=== PATIENT | female | born 1980 | race Caucasian/White ===

== ENCOUNTER 2019-12-10 14:26 | Emergency (ER) | payer MEDICARE, OTHER ==
[~2019-12-10] VITALS: Ht 162.6 cm; Wt 56.8 kg
[~2019-12-10 14:26] MED LIST: CITA10TA99 PO; GABA-1181 PO; LEVE500T53 PO; OLAN7.5T2 PO; SIMV-261 PO; ZONI100C30 PO
[2019-12-10] MEDS ORDERED: BACITRACIN 0.9 GM PACKET OINTMENT TP ONE (16:45)
[2019-12-10 17:35] LABS: BASOPHILS % (AUTO) 0.4 % (0.0-2.0); EOSINOPHILS % (AUTO) 0.4 % (1.0-6.0); HEMATOCRIT 39.7 % (36-46); HEMOGLOBIN 13.3 g/dL (12.0-16.0); LYMPHOCYTES # (AUTO) 2.6 K/uL (1.0-4.8); LYMPHOCYTES % (AUTO) 25.3 % (22.0-44.0); MEAN CORPUSCULAR HEMOGLOBIN 31.8 pg (26.0-34.0); MEAN CORPUSCULAR HGB CONC 33.4 G/dL (31.0-37.0); MEAN CORPUSCULAR VOLUME 95 fL (80-100); MONOCYTES # (AUTO) 0.5 K/uL (0.1-1.0); MONOCYTES % (AUTO) 4.6 % (2.0-9.0); NEUTROPHILS # (AUTO) 7.1 K/uL (1.8-7.7); NEUTROPHILS % (AUTO) 69.3 % (40.0-70.0); PLATELET COUNT (AUTO) 202 K/uL (150-450); RED BLOOD CELL COUNT(AUTO) 4.17 MIL/uL (4.00-5.20); RED CELL DISTRIBUTION WIDTH 13.5 % (11.5-14.5)
[2019-12-10 18:09] LABS: ALANINE AMINOTRANSFERASE 22 U/L (12-78); ALBUMIN 3.9 g/dL (3.4-5.0); ALKALINE PHOSPHATASE 100 U/L (46-116); ANION GAP 14 mmol/L (8-16); ASPARTATE AMINOTRANSFERASE 34 U/L (15-37); BILIRUBIN,TOTAL 0.3 mg/dL (0.1-1.0); CALCIUM, TOTAL 9.2 mg/dL (8.8-10.5); CARBON DIOXIDE 20 mmol/L (22-29); CHLORIDE 105 mmol/L (98-107); CREATININE 0.87 mg/dL (0.60-1.30); GLOMERULAR FILTR. RATE CALC > 60 mL/min (>60); GLUCOSE,RANDOM 89 mg/dL (70-110); SODIUM SERUM 139 mmol/L (136-145); TOTAL PROTEIN, SERUM 6.9 g/dL (6.4-8.2); UREA NITROGEN, BLOOD 11 mg/dL (7-18)
[2019-12-10 18:25] LABS: AMPHET/METH SCREEN,URINE NEGATIVE (NEGATIVE); BARBITURATE SCREEN, URINE NEGATIVE (NEGATIVE); BENZODIAZEPINES SCREEN,URINE NEGATIVE (NEGATIVE); CANNABINOID SCREEN,URINE NEGATIVE (NEGATIVE); COCAINE SCREEN,URINE NEGATIVE (NEGATIVE); METHADONE SCREEN, URINE NEGATIVE (NEGATIVE); OPIATE SCREEN,URINE NEGATIVE (NEGATIVE)
[2019-12-10 18:27] LABS: PHENCYCLIDINE SCREEN,URINE NEGATIVE (NEGATIVE)
[2019-12-10 18:29] VITALS: BP 115/72
[2019-12-10] MEDS ORDERED: POTASSIUM CHLORIDE 20 MEQ ER TABLET PO ONE (18:30)
== END 2019-12-10 19:59 | disposition home or self-care (01) ==
LOC: EMS 14:26
DX: R45.1 Restlessness and agitation (principal); F17.210 Nicotine dependence, cigarettes, uncomplicated; Z88.8 Allergy status to other drugs, medicaments and biological substances
CPT/HCPCS: 36415; 80053; 80307; 85025; 99285; G0480

== ENCOUNTER 2019-12-13 08:07 | Emergency (ER) | payer MEDICARE, OTHER ==
[~2019-12-13] VITALS: Ht 162.6 cm; Wt 50.0 kg
[2019-12-13 11:38] LABS: BASOPHILS % (AUTO) 0.5 % (0.0-2.0); EOSINOPHILS % (AUTO) 0.9 % (1.0-6.0); HEMOGLOBIN 13.2 g/dL (12.0-16.0); LYMPHOCYTES # (AUTO) 1.9 K/uL (1.0-4.8); MEAN CORPUSCULAR HEMOGLOBIN 31.7 pg (26.0-34.0); MEAN CORPUSCULAR VOLUME 96 fL (80-100); MONOCYTES # (AUTO) 0.4 K/uL (0.1-1.0); MONOCYTES % (AUTO) 4.7 % (2.0-9.0); NEUTROPHILS # (AUTO) 5.3 K/uL (1.8-7.7); NEUTROPHILS % (AUTO) 68.9 % (40.0-70.0); PLATELET COUNT (AUTO) 209 K/uL (150-450); RED BLOOD CELL COUNT(AUTO) 4.17 MIL/uL (4.00-5.20); RED CELL DISTRIBUTION WIDTH 13.5 % (11.5-14.5)
[2019-12-13 11:50] LABS: ANION GAP 6 mmol/L (8-16); CALCIUM, TOTAL 9.1 mg/dL (8.8-10.5); CARBON DIOXIDE 26 mmol/L (22-29); CHLORIDE 107 mmol/L (98-107); CREATININE 0.65 mg/dL (0.60-1.30); GLOMERULAR FILTR. RATE CALC > 60 mL/min (>60); GLUCOSE,RANDOM 93 mg/dL (70-110); POTASSIUM 3.6 mmol/L (3.5-5.1); SODIUM SERUM 139 mmol/L (136-145); UREA NITROGEN, BLOOD 7 mg/dL (7-18)
[2019-12-13 11:54] LABS: ALANINE AMINOTRANSFERASE 22 U/L (12-78); ALBUMIN 3.8 g/dL (3.4-5.0); ALKALINE PHOSPHATASE 107 U/L (46-116); ASPARTATE AMINOTRANSFERASE 24 U/L (15-37); BILIRUBIN,TOTAL 0.3 mg/dL (0.1-1.0); TOTAL PROTEIN, SERUM 7.1 g/dL (6.4-8.2)
[2019-12-13 12:06] LABS: AMPHET/METH SCREEN,URINE NEGATIVE (NEGATIVE); BARBITURATE SCREEN, URINE NEGATIVE (NEGATIVE); BENZODIAZEPINES SCREEN,URINE NEGATIVE (NEGATIVE); CANNABINOID SCREEN,URINE NEGATIVE (NEGATIVE); COCAINE SCREEN,URINE NEGATIVE (NEGATIVE); METHADONE SCREEN, URINE NEGATIVE (NEGATIVE); OPIATE SCREEN,URINE NEGATIVE (NEGATIVE)
[2019-12-13 12:07] LABS: PHENCYCLIDINE SCREEN,URINE NEGATIVE (NEGATIVE)
[2019-12-13 12:28] LABS: APPEARANCE,URINE TURBID (CLEAR); BILIRUBIN,URINE NEGATIVE (NEGATIVE); GLUCOSE, URINE (UA) NEGATIVE (NEGATIVE); KETONES,URINE NEGATIVE (NEGATIVE); LEUKOCYTE ESTERASE ,URINE TRACE (NEGATIVE); NITRATE,URINE NEGATIVE (NEGATIVE); OCCULT BLOOD,URINE NEGATIVE (NEGATIVE); PROTEIN,URINE NEGATIVE (NEGATIVE)
[2019-12-13 12:47] LABS: BACTERIA,URINE Few /HPF (None Seen); RBC,URINE None Seen /HPF (0-2); SQUAMOUS EPITHELIAL CELL,UR Few /LPF (None Seen); WBC,URINE 0-2 /HPF (0-5)
[2019-12-13 13:05] LABS: CREATINE KINASE, TOTAL ONLY 331 U/L (26-192)
[2019-12-13 14:05] VITALS: BP 102/56
== END 2019-12-13 15:43 | disposition home or self-care (01) ==
LOC: EMS 08:10
DX: F25.9 Schizoaffective disorder, unspecified (principal); F17.210 Nicotine dependence, cigarettes, uncomplicated; Z88.8 Allergy status to other drugs, medicaments and biological substances
CPT/HCPCS: 36415; 80053; 80307; 81001; 82550; 85025; 99285; G0480

== ENCOUNTER 2020-01-01 13:50 | Inpatient (IN) | payer MEDICARE, MEDICAID ==
[~2020-01-01] VITALS: Ht 162.6 cm; Wt 63.5 kg
[2020-01-01] MEDS ORDERED: ZONISAMIDE 100 MG CAPSULE PO ONE (15:15)
[2020-01-01] MEDS ORDERED: LevETIRAcetam 500 MG TABLET PO ONE (15:15)
[2020-01-01] MEDS ORDERED: BACITRACIN 0.9 GM PACKET OINTMENT TP ONE (15:15)
[2020-01-01 15:29] LABS: BASOPHILS % (AUTO) 0.7 % (0.0-2.0); EOSINOPHILS % (AUTO) 0.8 % (1.0-6.0); HEMATOCRIT 39.8 % (36-46); HEMOGLOBIN 13.2 g/dL (12.0-16.0); LYMPHOCYTES # (AUTO) 1.3 K/uL (1.0-4.8); MEAN CORPUSCULAR HEMOGLOBIN 32.5 pg (26.0-34.0); MEAN CORPUSCULAR HGB CONC 33.1 G/dL (31.0-37.0); MEAN CORPUSCULAR VOLUME 98 fL (80-100); MONOCYTES # (AUTO) 0.3 K/uL (0.1-1.0); MONOCYTES % (AUTO) 4.9 % (2.0-9.0); NEUTROPHILS # (AUTO) 4.4 K/uL (1.8-7.7); NEUTROPHILS % (AUTO) 72.6 % (40.0-70.0); PLATELET COUNT (AUTO) 209 K/uL (150-450); RED BLOOD CELL COUNT(AUTO) 4.06 MIL/uL (4.00-5.20); RED CELL DISTRIBUTION WIDTH 14.6 % (11.5-14.5)
[2020-01-01 15:34] LABS: ANION GAP 11 mmol/L (8-16); CALCIUM, TOTAL 8.6 mg/dL (8.8-10.5); CARBON DIOXIDE 22 mmol/L (22-29); CHLORIDE 108 mmol/L (98-107); CREATININE 0.72 mg/dL (0.60-1.30); GLOMERULAR FILTR. RATE CALC > 60 mL/min (>60); GLUCOSE,RANDOM 95 mg/dL (70-110); POTASSIUM 3.8 mmol/L (3.5-5.1); SODIUM SERUM 141 mmol/L (136-145); UREA NITROGEN, BLOOD 9 mg/dL (7-18)
[2020-01-01 15:47] LABS: ALANINE AMINOTRANSFERASE 18 U/L (12-78); ALBUMIN 3.6 g/dL (3.4-5.0); ALKALINE PHOSPHATASE 97 U/L (46-116); ASPARTATE AMINOTRANSFERASE 15 U/L (15-37); BILIRUBIN,TOTAL 0.3 mg/dL (0.1-1.0); HCG,QUANTITATIVE 1 mIU/mL (0-6)
[2020-01-01] MEDS ORDERED: ZOLPIDEM TARTRATE 10 MG TABLET PO PRN (18:00)
[2020-01-01] MEDS ORDERED: HALOPERIDOL 5 MG TABLET PO PRN (18:00)
[2020-01-01] MEDS ORDERED: LORazepam 2 MG TABLET PO PRN (18:00)
[2020-01-01 18:34] LABS: COVID AG,FIA SOURCE NASAL SWAB
[2020-01-01 19:02] LABS: CHOL/HDL RATIO 3.3 (3.9-5.7); CHOLESTEROL 171 mg/dL (131-200); FREE T4 (FREE THYROXINE) 0.93 ng/dL (0.76-1.46); HDL CHOLESTEROL 52 mg/dL (40-60); LDL CHOL (CALC.) 104 mg/dL (0-130); THYROID STIMULATING HORMONE 1.05 uIU/mL (0.36-3.74); TRIGLYCERIDES 76 mg/dL (15-150)
[2020-01-02 00:54] VITALS: BP 101/68
[2020-01-02] MEDS ORDERED: INFLUENZA VIRUS VACCINE QVS 2020-21 (6MO+)/PF 60 MCG/0.5 ML SYRINGE IM ONE (02:15)
[2020-01-02 08:14] VITALS: BP 103/60
[2020-01-02] MEDS ORDERED: MAG HYDROX/AL HYDROX/SIMETH ES 30 ML SUSPENSION UDCUP PO PRN (08:15)
[2020-01-02] MEDS ORDERED: ACETAMINOPHEN 325 MG TABLET PO PRN (08:15)
[2020-01-02] MEDS ORDERED: PETROLATUM,WHITE 28 GM JELLY TP PRN (08:15)
[2020-01-02] MEDS ORDERED: CloNIDine HCL 0.1 MG TABLET PO PRN (08:15)
[2020-01-02] MEDS ORDERED: DOCUSATE SODIUM 100 MG CAPSULE PO PRN (08:15)
[2020-01-02] MEDS ORDERED: ALBUTEROL SULFATE HFA 90 MCG/PUFF 8 GM INHALER IH PRN (08:15)
[2020-01-02] MEDS ORDERED: NICOTINE 14 MG/24 HOUR PATCH TD PRN (08:15)
[2020-01-02] MEDS ORDERED: GuaiFENesin/D-METHORPHAN [SUGAR-FREE] 200-20MG/10 ML SYRUP UDCUP PO PRN (08:15)
[2020-01-02] MEDS ORDERED: LOPERAMIDE HCL 2 MG CAPSULE PO PRN (08:15)
[2020-01-02] MEDS ORDERED: MAGNESIUM HYDROXIDE SUSPENSION 30 ML UDCUP PO PRN (08:15)
[2020-01-02] MEDS: ZONISAMIDE 100 MG CAPSULE PO SCH (10:15)
[2020-01-02] MEDS: LevETIRAcetam 500 MG TABLET PO SCH ×2 (10:16→16:53)
[2020-01-02 17:26] VITALS: BP 129/88
[2020-01-02] MEDS: GABAPENTIN 300 MG CAPSULE PO SCH (20:33)
[2020-01-02] MEDS: SIMVASTATIN 10 MG TABLET PO SCH (20:33)
[2020-01-03 00:32] VITALS: BP 124/72
[2020-01-03 08:16] LABS: AMPHET/METH SCREEN,URINE NEGATIVE (NEGATIVE); BARBITURATE SCREEN, URINE NEGATIVE (NEGATIVE); BENZODIAZEPINES SCREEN,URINE NEGATIVE (NEGATIVE); CANNABINOID SCREEN,URINE NEGATIVE (NEGATIVE); COCAINE SCREEN,URINE NEGATIVE (NEGATIVE); METHADONE SCREEN, URINE NEGATIVE (NEGATIVE); OPIATE SCREEN,URINE NEGATIVE (NEGATIVE); PHENCYCLIDINE SCREEN,URINE NEGATIVE (NEGATIVE)
[2020-01-03] MEDS: THIAMINE 100 MG TABLET PO SCH (08:53)
[2020-01-03] MEDS: FOLIC ACID 1 MG TABLET PO SCH (08:53)
[2020-01-03] MEDS: LevETIRAcetam 500 MG TABLET PO SCH ×2 (08:54→16:48)
[2020-01-03] MEDS: ZONISAMIDE 100 MG CAPSULE PO SCH (08:54)
[2020-01-03 09:08] VITALS: BP 106/57
[2020-01-03 18:56] VITALS: BP 112/56
[2020-01-03] MEDS: SIMVASTATIN 10 MG TABLET PO SCH (20:34)
[2020-01-03] MEDS: GABAPENTIN 300 MG CAPSULE PO SCH (20:34)
[2020-01-03] MEDS: MUPIROCIN CALCIUM 2% 22 GM OINTMENT NASAL SCH (21:37)
[2020-01-04 00:08] VITALS: BP 105/65
[2020-01-04] MEDS: ZONISAMIDE 100 MG CAPSULE PO SCH (09:02)
[2020-01-04] MEDS: MUPIROCIN CALCIUM 2% 22 GM OINTMENT NASAL SCH ×2 (09:02→16:31)
[2020-01-04] MEDS: LevETIRAcetam 500 MG TABLET PO SCH ×2 (09:03→16:31)
[2020-01-04] MEDS: THIAMINE 100 MG TABLET PO SCH (09:03)
[2020-01-04] MEDS: FOLIC ACID 1 MG TABLET PO SCH (09:03)
[2020-01-04 16:03] VITALS: BP 103/59
[2020-01-04] MEDS: SIMVASTATIN 10 MG TABLET PO SCH (20:32)
[2020-01-04] MEDS: GABAPENTIN 300 MG CAPSULE PO SCH (20:32)
[2020-01-05 00:13] VITALS: BP 98/62
[2020-01-05 08:05] VITALS: BP 104/66
[2020-01-05] MEDS: ZONISAMIDE 100 MG CAPSULE PO SCH (09:26)
[2020-01-05] MEDS: LevETIRAcetam 500 MG TABLET PO SCH ×2 (09:26→16:28)
[2020-01-05] MEDS: FOLIC ACID 1 MG TABLET PO SCH (09:26)
[2020-01-05] MEDS: THIAMINE 100 MG TABLET PO SCH (09:27)
[2020-01-05] MEDS: MUPIROCIN CALCIUM 2% 22 GM OINTMENT NASAL SCH ×2 (09:29→16:29)
[2020-01-05 19:25] VITALS: BP 108/63
[2020-01-05] MEDS: GABAPENTIN 300 MG CAPSULE PO SCH (20:35)
[2020-01-05] MEDS: SIMVASTATIN 10 MG TABLET PO SCH (20:36)
[2020-01-06 00:03] VITALS: BP 104/65
[2020-01-06 08:50] VITALS: BP 100/60
[2020-01-06] MEDS: LevETIRAcetam 500 MG TABLET PO SCH ×2 (10:38→18:51)
[2020-01-06] MEDS: FOLIC ACID 1 MG TABLET PO SCH (10:38)
[2020-01-06] MEDS: ZONISAMIDE 100 MG CAPSULE PO SCH (10:39)
[2020-01-06] MEDS: THIAMINE 100 MG TABLET PO SCH (10:39)
[2020-01-06] MEDS: MUPIROCIN CALCIUM 2% 22 GM OINTMENT NASAL SCH ×2 (10:39→17:53)
[2020-01-06] MEDS: GABAPENTIN 300 MG CAPSULE PO SCH (21:05)
[2020-01-06] MEDS: SIMVASTATIN 10 MG TABLET PO SCH (22:16)
[2020-01-07] MEDS: ZONISAMIDE 100 MG CAPSULE PO SCH (09:01)
[2020-01-07] MEDS: FOLIC ACID 1 MG TABLET PO SCH (09:01)
[2020-01-07] MEDS: THIAMINE 100 MG TABLET PO SCH (09:01)
[2020-01-07] MEDS: MUPIROCIN CALCIUM 2% 22 GM OINTMENT NASAL SCH ×2 (09:01→16:32)
[2020-01-07] MEDS: LevETIRAcetam 500 MG TABLET PO SCH ×2 (09:01→16:31)
[2020-01-07 12:15] VITALS: BP 100/61
[2020-01-07 16:26] VITALS: BP 135/73
[2020-01-07] MEDS: SIMVASTATIN 10 MG TABLET PO SCH (20:09)
[2020-01-07] MEDS: GABAPENTIN 300 MG CAPSULE PO SCH (20:09)
[2020-01-08] MEDS: ZONISAMIDE 100 MG CAPSULE PO SCH (08:36)
[2020-01-08] MEDS: LevETIRAcetam 500 MG TABLET PO SCH ×2 (08:36→16:35)
[2020-01-08] MEDS: FOLIC ACID 1 MG TABLET PO SCH (08:36)
[2020-01-08] MEDS: THIAMINE 100 MG TABLET PO SCH (08:36)
[2020-01-08] MEDS: MUPIROCIN CALCIUM 2% 22 GM OINTMENT NASAL SCH (08:38)
[2020-01-08 08:44] VITALS: BP 106/60
[2020-01-08 16:08] VITALS: BP 94/33
[2020-01-08] MEDS: GABAPENTIN 300 MG CAPSULE PO SCH (20:31)
[2020-01-08] MEDS: SIMVASTATIN 10 MG TABLET PO SCH (20:31)
[2020-01-09] MEDS: ZONISAMIDE 100 MG CAPSULE PO SCH (08:24)
[2020-01-09] MEDS: FOLIC ACID 1 MG TABLET PO SCH (08:24)
[2020-01-09] MEDS: LevETIRAcetam 500 MG TABLET PO SCH ×2 (08:24→17:44)
[2020-01-09] MEDS: THIAMINE 100 MG TABLET PO SCH (08:24)
[2020-01-09 08:44] VITALS: BP 106/67
[2020-01-09 16:24] VITALS: BP 108/69
[2020-01-09] MEDS: SIMVASTATIN 10 MG TABLET PO SCH (20:38)
[2020-01-09] MEDS: GABAPENTIN 300 MG CAPSULE PO SCH (20:38)
[2020-01-10 04:18] VITALS: BP 110/70
[2020-01-10] MEDS: LevETIRAcetam 500 MG TABLET PO SCH ×2 (08:09→17:04)
[2020-01-10] MEDS: ZONISAMIDE 100 MG CAPSULE PO SCH (08:09)
[2020-01-10] MEDS: THIAMINE 100 MG TABLET PO SCH (08:10)
[2020-01-10] MEDS: FOLIC ACID 1 MG TABLET PO SCH (08:10)
[2020-01-10 08:32] VITALS: BP 106/68
[2020-01-10 16:22] VITALS: BP 103/61
[2020-01-10] MEDS: GABAPENTIN 300 MG CAPSULE PO SCH (21:00)
[2020-01-10] MEDS: SIMVASTATIN 10 MG TABLET PO SCH (21:00)
[2020-01-11 00:24] VITALS: BP 107/64
[2020-01-11 08:06] VITALS: BP 110/61
[2020-01-11] MEDS: ZONISAMIDE 100 MG CAPSULE PO SCH (08:37)
[2020-01-11] MEDS: LevETIRAcetam 500 MG TABLET PO SCH ×2 (08:37→17:50)
[2020-01-11] MEDS: THIAMINE 100 MG TABLET PO SCH (08:38)
[2020-01-11] MEDS: FOLIC ACID 1 MG TABLET PO SCH (08:38)
[2020-01-11 17:50] VITALS: BP 104/46
[2020-01-11] MEDS: GABAPENTIN 300 MG CAPSULE PO SCH (20:10)
[2020-01-11] MEDS: SIMVASTATIN 10 MG TABLET PO SCH (20:10)
[2020-01-12 01:44] VITALS: BP 125/63
[2020-01-12 08:23] VITALS: BP 106/62
[2020-01-12] MEDS: FOLIC ACID 1 MG TABLET PO SCH (08:31)
[2020-01-12] MEDS: LevETIRAcetam 500 MG TABLET PO SCH ×2 (08:31→16:56)
[2020-01-12] MEDS: THIAMINE 100 MG TABLET PO SCH (08:31)
[2020-01-12] MEDS: ZONISAMIDE 100 MG CAPSULE PO SCH (08:31)
[2020-01-12 16:57] VITALS: BP 106/48
[2020-01-12] MEDS: GABAPENTIN 300 MG CAPSULE PO SCH (20:30)
[2020-01-12] MEDS: SIMVASTATIN 10 MG TABLET PO SCH (20:30)
[2020-01-13 08:16] VITALS: BP 122/53
[2020-01-13] MEDS: LevETIRAcetam 500 MG TABLET PO SCH ×2 (08:32→16:39)
[2020-01-13] MEDS: FOLIC ACID 1 MG TABLET PO SCH (08:32)
[2020-01-13] MEDS: ZONISAMIDE 100 MG CAPSULE PO SCH (08:32)
[2020-01-13] MEDS: THIAMINE 100 MG TABLET PO SCH (08:33)
[2020-01-13 16:08] VITALS: BP 102/52
[2020-01-13] MEDS: SIMVASTATIN 10 MG TABLET PO SCH (20:33)
[2020-01-13] MEDS: GABAPENTIN 300 MG CAPSULE PO SCH (20:33)
[2020-01-14 04:04] VITALS: BP 101/67
[2020-01-14] MEDS: THIAMINE 100 MG TABLET PO SCH (08:05)
[2020-01-14] MEDS: ZONISAMIDE 100 MG CAPSULE PO SCH (08:05)
[2020-01-14] MEDS: LevETIRAcetam 500 MG TABLET PO SCH ×3 (08:05→18:31)
[2020-01-14] MEDS: FOLIC ACID 1 MG TABLET PO SCH (08:07)
[2020-01-14 08:13] VITALS: BP 96/59
[2020-01-14 17:00] VITALS: BP 101/55
[2020-01-14] MEDS: GABAPENTIN 300 MG CAPSULE PO SCH (20:12)
[2020-01-14] MEDS: SIMVASTATIN 10 MG TABLET PO SCH (20:12)
[2020-01-15 00:18] VITALS: BP 100/60
[2020-01-15] MEDS: ZONISAMIDE 100 MG CAPSULE PO SCH (08:32)
[2020-01-15] MEDS: FOLIC ACID 1 MG TABLET PO SCH (08:32)
[2020-01-15] MEDS: LevETIRAcetam 500 MG TABLET PO SCH ×2 (08:32→16:28)
[2020-01-15] MEDS: THIAMINE 100 MG TABLET PO SCH (08:32)
[2020-01-15 08:38] VITALS: BP 121/59
[2020-01-15 16:13] VITALS: BP 93/44
[2020-01-15] MEDS: GABAPENTIN 300 MG CAPSULE PO SCH (20:21)
[2020-01-15] MEDS: SIMVASTATIN 10 MG TABLET PO SCH (20:21)
[2020-01-16] MEDS: THIAMINE 100 MG TABLET PO SCH (08:27)
[2020-01-16] MEDS: LevETIRAcetam 500 MG TABLET PO SCH ×2 (08:28→16:18)
[2020-01-16] MEDS: ZONISAMIDE 100 MG CAPSULE PO SCH (08:28)
[2020-01-16] MEDS: FOLIC ACID 1 MG TABLET PO SCH (08:28)
[2020-01-16 12:58] VITALS: BP 114/54
[2020-01-16] MEDS: SIMVASTATIN 10 MG TABLET PO SCH (20:07)
[2020-01-16] MEDS: GABAPENTIN 300 MG CAPSULE PO SCH (20:07)
[2020-01-17 00:16] VITALS: BP 96/60
[2020-01-17] MEDS: ZONISAMIDE 100 MG CAPSULE PO SCH (08:15)
[2020-01-17] MEDS: LevETIRAcetam 500 MG TABLET PO SCH ×2 (08:15→17:11)
[2020-01-17] MEDS ORDERED: MECLIZINE HCL 12.5 MG TABLET PO PRN (08:15)
[2020-01-17] MEDS: FOLIC ACID 1 MG TABLET PO SCH (08:15)
[2020-01-17] MEDS: THIAMINE 100 MG TABLET PO SCH (08:16)
[2020-01-17 08:28] VITALS: BP 119/68
[2020-01-17 16:18] VITALS: BP 98/59
[2020-01-17] MEDS: SIMVASTATIN 10 MG TABLET PO SCH (21:00)
[2020-01-17] MEDS: GABAPENTIN 300 MG CAPSULE PO SCH (21:00)
[2020-01-18 04:22] VITALS: BP 101/58
[2020-01-18 07:36] LABS: BASOPHILS % (AUTO) 0.5 % (0.0-2.0); EOSINOPHILS % (AUTO) 1.5 % (1.0-6.0); HEMATOCRIT 38.3 % (36-46); HEMOGLOBIN 13.1 g/dL (12.0-16.0); LYMPHOCYTES # (AUTO) 2.2 K/uL (1.0-4.8); LYMPHOCYTES % (AUTO) 28.8 % (22.0-44.0); MEAN CORPUSCULAR HEMOGLOBIN 32.8 pg (26.0-34.0); MEAN CORPUSCULAR HGB CONC 34.1 G/dL (31.0-37.0); MEAN CORPUSCULAR VOLUME 96 fL (80-100); MONOCYTES # (AUTO) 0.5 K/uL (0.1-1.0); MONOCYTES % (AUTO) 6.3 % (2.0-9.0); NEUTROPHILS # (AUTO) 4.9 K/uL (1.8-7.7); NEUTROPHILS % (AUTO) 62.9 % (40.0-70.0); PLATELET COUNT (AUTO) 210 K/uL (150-450); RED BLOOD CELL COUNT(AUTO) 3.99 MIL/uL (4.00-5.20); RED CELL DISTRIBUTION WIDTH 13.7 % (11.5-14.5)
[2020-01-18 07:46] LABS: ANION GAP 6 mmol/L (8-16); CALCIUM, TOTAL 8.9 mg/dL (8.8-10.5); CARBON DIOXIDE 27 mmol/L (22-29); CHLORIDE 108 mmol/L (98-107); CREATININE 0.65 mg/dL (0.60-1.30); GLOMERULAR FILTR. RATE CALC > 60 mL/min (>60); GLUCOSE,RANDOM 75 mg/dL (70-110); POTASSIUM 3.5 mmol/L (3.5-5.1); SODIUM SERUM 141 mmol/L (136-145); UREA NITROGEN, BLOOD 11 mg/dL (7-18)
[2020-01-18 08:25] VITALS: BP 102/47
[2020-01-18] MEDS: ZONISAMIDE 100 MG CAPSULE PO SCH (08:30)
[2020-01-18] MEDS: LevETIRAcetam 500 MG TABLET PO SCH ×2 (08:30→16:55)
[2020-01-18] MEDS: FOLIC ACID 1 MG TABLET PO SCH (08:30)
[2020-01-18] MEDS: THIAMINE 100 MG TABLET PO SCH (08:30)
[2020-01-18 16:33] VITALS: BP 111/70
[2020-01-18] MEDS: SIMVASTATIN 10 MG TABLET PO SCH (20:07)
[2020-01-18] MEDS: GABAPENTIN 300 MG CAPSULE PO SCH (20:07)
[2020-01-19 00:01] VITALS: BP 110/60
[2020-01-19 08:04] VITALS: BP 112/46
[2020-01-19] MEDS ORDERED: ZONISAMIDE 100 MG CAPSULE PO SCH (09:00)
[2020-01-19] MEDS: THIAMINE 100 MG TABLET PO SCH (09:07)
[2020-01-19] MEDS: LevETIRAcetam 500 MG TABLET PO SCH ×2 (09:07→17:12)
[2020-01-19] MEDS: FOLIC ACID 1 MG TABLET PO SCH (09:07)
[2020-01-19 16:16] VITALS: BP 105/50
[2020-01-19] MEDS: SIMVASTATIN 10 MG TABLET PO SCH (20:09)
[2020-01-19] MEDS: GABAPENTIN 300 MG CAPSULE PO SCH (20:09)
[2020-01-19] MEDS: ZONISAMIDE 100 MG CAPSULE PO SCH (20:09)
[2020-01-20 08:25] LABS: APPEARANCE,URINE CLOUDY (CLEAR); BILIRUBIN,URINE NEGATIVE (NEGATIVE); GLUCOSE, URINE (UA) NEGATIVE (NEGATIVE); KETONES,URINE NEGATIVE (NEGATIVE); LEUKOCYTE ESTERASE ,URINE MODERATE (NEGATIVE); NITRATE,URINE NEGATIVE (NEGATIVE); OCCULT BLOOD,URINE NEGATIVE (NEGATIVE); PROTEIN,URINE NEGATIVE (NEGATIVE); UROBILINOGEN,URINE 0.2 mg/dL (<=1.0)
[2020-01-20] MEDS: FOLIC ACID 1 MG TABLET PO SCH (08:34)
[2020-01-20] MEDS: THIAMINE 100 MG TABLET PO SCH (08:34)
[2020-01-20] MEDS: LevETIRAcetam 500 MG TABLET PO SCH ×2 (08:34→16:21)
[2020-01-20 08:35] LABS: BACTERIA,URINE Few /HPF (None Seen); HYALINE CASTS, URINE 0-2 /LPF (None Seen); RBC,URINE None Seen /HPF (0-2); SQUAMOUS EPITHELIAL CELL,UR Many /LPF (None Seen)
[2020-01-20 15:00] VITALS: BP 105/68
[2020-01-20 15:15] VITALS: BP 110/56
[2020-01-20 16:00] VITALS: BP 110/50
[2020-01-20 16:20] VITALS: BP 121/54
[2020-01-20 17:00] VITALS: BP 120/60
[2020-01-20 18:00] VITALS: BP 120/58
[2020-01-20] MEDS: GABAPENTIN 300 MG CAPSULE PO SCH (20:41)
[2020-01-20] MEDS: SIMVASTATIN 10 MG TABLET PO SCH (20:41)
[2020-01-20] MEDS: ZONISAMIDE 100 MG CAPSULE PO SCH (20:42)
[2020-01-21 00:04] VITALS: BP 118/70
[2020-01-21 08:07] VITALS: BP 109/44
[2020-01-21] MEDS: LevETIRAcetam 500 MG TABLET PO SCH ×2 (08:27→21:53)
[2020-01-21] MEDS: THIAMINE 100 MG TABLET PO SCH (08:27)
[2020-01-21] MEDS: FOLIC ACID 1 MG TABLET PO SCH (08:27)
[2020-01-21 21:45] VITALS: BP 123/65
[2020-01-21] MEDS: GABAPENTIN 300 MG CAPSULE PO SCH (21:53)
[2020-01-21] MEDS: SIMVASTATIN 10 MG TABLET PO SCH (21:54)
[2020-01-21] MEDS: ZONISAMIDE 100 MG CAPSULE PO SCH (22:53)
[2020-01-22] MEDS: FOLIC ACID 1 MG TABLET PO SCH (08:16)
[2020-01-22] MEDS: THIAMINE 100 MG TABLET PO SCH (08:16)
[2020-01-22] MEDS: LevETIRAcetam 500 MG TABLET PO SCH ×2 (08:16→17:12)
[2020-01-22 09:10] VITALS: BP 112/65
[2020-01-22 16:56] VITALS: BP 104/63
[2020-01-22] MEDS: GABAPENTIN 300 MG CAPSULE PO SCH (20:24)
[2020-01-22] MEDS: SIMVASTATIN 10 MG TABLET PO SCH (20:25)
[2020-01-22] MEDS: ZONISAMIDE 100 MG CAPSULE PO SCH (21:19)
[2020-01-23] MEDS: LevETIRAcetam 500 MG TABLET PO SCH ×2 (10:13→16:07)
[2020-01-23] MEDS: FOLIC ACID 1 MG TABLET PO SCH (10:13)
[2020-01-23] MEDS: THIAMINE 100 MG TABLET PO SCH (10:14)
[2020-01-23 11:27] VITALS: BP 98/51
[2020-01-23 16:03] VITALS: BP 100/69
[2020-01-23] MEDS: ZONISAMIDE 100 MG CAPSULE PO SCH (20:24)
[2020-01-23] MEDS: SIMVASTATIN 10 MG TABLET PO SCH (20:24)
[2020-01-23] MEDS: GABAPENTIN 300 MG CAPSULE PO SCH (20:24)
[2020-01-24 08:15] VITALS: BP 108/58
[2020-01-24] MEDS: LevETIRAcetam 500 MG TABLET PO SCH ×2 (08:46→17:07)
[2020-01-24] MEDS: FOLIC ACID 1 MG TABLET PO SCH (08:47)
[2020-01-24] MEDS: THIAMINE 100 MG TABLET PO SCH (08:47)
[2020-01-24 16:00] VITALS: BP 105/54
[2020-01-24] MEDS: SIMVASTATIN 10 MG TABLET PO SCH (21:05)
[2020-01-24] MEDS: ZONISAMIDE 100 MG CAPSULE PO SCH (21:05)
[2020-01-24] MEDS: GABAPENTIN 300 MG CAPSULE PO SCH (21:05)
[2020-01-25 06:12] VITALS: BP 95/57
[2020-01-25] MEDS: FOLIC ACID 1 MG TABLET PO SCH (08:21)
[2020-01-25] MEDS: THIAMINE 100 MG TABLET PO SCH (08:21)
[2020-01-25] MEDS: LevETIRAcetam 500 MG TABLET PO SCH ×2 (08:21→16:51)
[2020-01-25 08:36] VITALS: BP 104/56
[2020-01-25 16:14] VITALS: BP 94/51
[2020-01-25] MEDS: GABAPENTIN 300 MG CAPSULE PO SCH (20:59)
[2020-01-25] MEDS: SIMVASTATIN 10 MG TABLET PO SCH (20:59)
[2020-01-25] MEDS: ZONISAMIDE 100 MG CAPSULE PO SCH (20:59)
[2020-01-25] MEDS: ONDANSETRON HCL 4 MG TABLET PO PRN (21:06)
[2020-01-26 08:00] VITALS: BP 118/67
[2020-01-26] MEDS: LevETIRAcetam 500 MG TABLET PO SCH ×2 (09:00→15:57)
[2020-01-26] MEDS: THIAMINE 100 MG TABLET PO SCH (09:00)
[2020-01-26] MEDS: FOLIC ACID 1 MG TABLET PO SCH (09:00)
[2020-01-26] MEDS: MUPIROCIN CALCIUM 2% 22 GM OINTMENT NASAL SCH ×2 (09:00→15:57)
[2020-01-26 16:00] VITALS: BP 101/54
[2020-01-26] MEDS: GABAPENTIN 300 MG CAPSULE PO SCH (20:49)
[2020-01-26] MEDS: SIMVASTATIN 10 MG TABLET PO SCH (20:49)
[2020-01-26] MEDS: ZONISAMIDE 100 MG CAPSULE PO SCH (20:49)
[2020-01-27 00:51] VITALS: BP 108/50
[2020-01-27 08:00] VITALS: BP 109/53
[2020-01-27] MEDS: THIAMINE 100 MG TABLET PO SCH (09:00)
[2020-01-27] MEDS: FOLIC ACID 1 MG TABLET PO SCH (09:00)
[2020-01-27] MEDS: MUPIROCIN CALCIUM 2% 22 GM OINTMENT NASAL SCH ×2 (09:00→16:32)
[2020-01-27] MEDS: LevETIRAcetam 500 MG TABLET PO SCH ×2 (09:00→16:32)
[2020-01-27 17:49] VITALS: BP 124/58
[2020-01-27] MEDS: IBUPROFEN 400 MG TABLET PO PRN (17:49)
[2020-01-27] MEDS: SIMVASTATIN 10 MG TABLET PO SCH (20:10)
[2020-01-27] MEDS: ZONISAMIDE 100 MG CAPSULE PO SCH (20:11)
[2020-01-27] MEDS: GABAPENTIN 300 MG CAPSULE PO SCH (20:11)
[2020-01-27] MEDS ORDERED: LORazepam 2 MG/ML VIAL ONE (20:34)
[2020-01-27] MEDS ORDERED: HALOPERIDOL LACTATE 5 MG/ML VIAL ONE (20:34)
[2020-01-27] MEDS ORDERED: LORazepam 2 MG/ML VIAL IM ONE (20:45)
[2020-01-27] MEDS ORDERED: HALOPERIDOL LACTATE 5 MG/ML VIAL IM ONE (20:45)
[2020-01-28 04:50] VITALS: BP 94/50
[2020-01-28 05:52] VITALS: BP 109/54
[2020-01-28] MEDS: FOLIC ACID 1 MG TABLET PO SCH (09:00)
[2020-01-28] MEDS: THIAMINE 100 MG TABLET PO SCH (09:00)
[2020-01-28] MEDS: LevETIRAcetam 500 MG TABLET PO SCH ×2 (09:00→16:02)
[2020-01-28] MEDS: MUPIROCIN CALCIUM 2% 22 GM OINTMENT NASAL SCH ×2 (09:46→16:02)
[2020-01-28 10:16] VITALS: BP 106/55
[2020-01-28] MEDS: IBUPROFEN 400 MG TABLET PO PRN (10:45)
[2020-01-28 16:00] VITALS: BP 116/82
[2020-01-28] MEDS ORDERED: LORazepam 2 MG/ML VIAL ONE (18:27)
[2020-01-28] MEDS ORDERED: HALOPERIDOL LACTATE 5 MG/ML VIAL ONE (18:27)
[2020-01-28] MEDS ORDERED: LORazepam 2 MG/ML VIAL IM ONE (18:30)
[2020-01-28] MEDS ORDERED: HALOPERIDOL LACTATE 5 MG/ML VIAL IM ONE (18:30)
[2020-01-28] MEDS: SIMVASTATIN 10 MG TABLET PO SCH (20:48)
[2020-01-28] MEDS: ZONISAMIDE 100 MG CAPSULE PO SCH (20:48)
[2020-01-28] MEDS: GABAPENTIN 300 MG CAPSULE PO SCH (20:49)
[2020-01-29] MEDS: FOLIC ACID 1 MG TABLET PO SCH (08:00)
[2020-01-29] MEDS: LevETIRAcetam 500 MG TABLET PO SCH ×2 (08:00→17:23)
[2020-01-29] MEDS: THIAMINE 100 MG TABLET PO SCH (08:00)
[2020-01-29] MEDS: MUPIROCIN CALCIUM 2% 22 GM OINTMENT NASAL SCH ×2 (08:04→17:24)
[2020-01-29 09:04] VITALS: BP 111/53
[2020-01-29 17:00] VITALS: BP 111/53
[2020-01-29] MEDS: ZONISAMIDE 100 MG CAPSULE PO SCH (20:15)
[2020-01-29] MEDS: GABAPENTIN 300 MG CAPSULE PO SCH (20:15)
[2020-01-29] MEDS: SIMVASTATIN 10 MG TABLET PO SCH (20:15)
[2020-01-30 08:37] VITALS: BP 93/40
[2020-01-30] MEDS: MUPIROCIN CALCIUM 2% 22 GM OINTMENT NASAL SCH ×2 (09:26→16:19)
[2020-01-30] MEDS: THIAMINE 100 MG TABLET PO SCH (09:26)
[2020-01-30] MEDS: LevETIRAcetam 500 MG TABLET PO SCH ×2 (09:26→16:18)
[2020-01-30] MEDS: FOLIC ACID 1 MG TABLET PO SCH (09:26)
[2020-01-30 16:00] VITALS: BP 132/45
[2020-01-30] MEDS: ZONISAMIDE 100 MG CAPSULE PO SCH (20:26)
[2020-01-30] MEDS: SIMVASTATIN 10 MG TABLET PO SCH (20:26)
[2020-01-30] MEDS: GABAPENTIN 300 MG CAPSULE PO SCH (20:26)
[2020-01-31 00:45] VITALS: BP 104/59
[2020-01-31] MEDS: MUPIROCIN CALCIUM 2% 22 GM OINTMENT NASAL SCH ×2 (08:55→16:38)
[2020-01-31] MEDS: FOLIC ACID 1 MG TABLET PO SCH (08:55)
[2020-01-31] MEDS: LevETIRAcetam 500 MG TABLET PO SCH ×2 (08:55→16:37)
[2020-01-31] MEDS: THIAMINE 100 MG TABLET PO SCH (08:55)
[2020-01-31 11:52] VITALS: BP 102/37
[2020-01-31 16:39] VITALS: BP 103/42
[2020-01-31] MEDS: ZONISAMIDE 100 MG CAPSULE PO SCH (20:30)
[2020-01-31] MEDS: GABAPENTIN 300 MG CAPSULE PO SCH (20:30)
[2020-01-31] MEDS: SIMVASTATIN 10 MG TABLET PO SCH (20:30)
[2020-02-01 08:00] VITALS: BP 110/48
[2020-02-01] MEDS: FOLIC ACID 1 MG TABLET PO SCH (08:47)
[2020-02-01] MEDS: THIAMINE 100 MG TABLET PO SCH (08:47)
[2020-02-01] MEDS: LevETIRAcetam 500 MG TABLET PO SCH ×2 (08:47→17:15)
[2020-02-01] MEDS: MUPIROCIN CALCIUM 2% 22 GM OINTMENT NASAL SCH ×2 (09:35→17:15)
[2020-02-01 16:38] VITALS: BP 106/49
[2020-02-01] MEDS: ZONISAMIDE 100 MG CAPSULE PO SCH (20:07)
[2020-02-01] MEDS: SIMVASTATIN 10 MG TABLET PO SCH (20:08)
[2020-02-01] MEDS: GABAPENTIN 300 MG CAPSULE PO SCH (20:08)
[2020-02-02 08:00] VITALS: BP 111/92
[2020-02-02] MEDS: MUPIROCIN CALCIUM 2% 22 GM OINTMENT NASAL SCH ×2 (09:13→17:25)
[2020-02-02] MEDS: FOLIC ACID 1 MG TABLET PO SCH (09:13)
[2020-02-02] MEDS: THIAMINE 100 MG TABLET PO SCH (09:13)
[2020-02-02] MEDS: LevETIRAcetam 500 MG TABLET PO SCH ×2 (09:13→17:25)
[2020-02-02 16:00] VITALS: BP 116/69
[2020-02-02] MEDS: GABAPENTIN 300 MG CAPSULE PO SCH (20:11)
[2020-02-02] MEDS: ZONISAMIDE 100 MG CAPSULE PO SCH (20:11)
[2020-02-02] MEDS: SIMVASTATIN 10 MG TABLET PO SCH (20:11)
[2020-02-03 08:00] VITALS: BP 102/50
[2020-02-03] MEDS: FOLIC ACID 1 MG TABLET PO SCH (08:18)
[2020-02-03] MEDS: MUPIROCIN CALCIUM 2% 22 GM OINTMENT NASAL SCH ×2 (08:18→16:14)
[2020-02-03] MEDS: THIAMINE 100 MG TABLET PO SCH (08:18)
[2020-02-03] MEDS: LevETIRAcetam 500 MG TABLET PO SCH ×2 (08:19→16:14)
[2020-02-03 16:00] VITALS: BP 95/55
[2020-02-03] MEDS: SIMVASTATIN 10 MG TABLET PO SCH (20:07)
[2020-02-03] MEDS: GABAPENTIN 300 MG CAPSULE PO SCH (20:07)
[2020-02-03] MEDS: ZONISAMIDE 100 MG CAPSULE PO SCH (20:08)
[2020-02-04 08:00] VITALS: BP 106/53
[2020-02-04] MEDS: MUPIROCIN CALCIUM 2% 22 GM OINTMENT NASAL SCH ×2 (10:08→17:28)
[2020-02-04] MEDS: FOLIC ACID 1 MG TABLET PO SCH (10:08)
[2020-02-04] MEDS: THIAMINE 100 MG TABLET PO SCH (10:08)
[2020-02-04] MEDS: LevETIRAcetam 500 MG TABLET PO SCH ×2 (10:08→17:28)
[2020-02-04 16:46] VITALS: BP 140/86
[2020-02-04] MEDS: ZONISAMIDE 100 MG CAPSULE PO SCH (20:41)
[2020-02-04] MEDS: GABAPENTIN 300 MG CAPSULE PO SCH (20:41)
[2020-02-04] MEDS: SIMVASTATIN 10 MG TABLET PO SCH (20:44)
[2020-02-05] MEDS: FOLIC ACID 1 MG TABLET PO SCH (08:07)
[2020-02-05] MEDS: THIAMINE 100 MG TABLET PO SCH (08:07)
[2020-02-05] MEDS: LevETIRAcetam 500 MG TABLET PO SCH ×2 (08:08→16:33)
[2020-02-05] MEDS: MUPIROCIN CALCIUM 2% 22 GM OINTMENT NASAL SCH (08:08)
[2020-02-05 08:53] VITALS: BP 110/75
[2020-02-05 16:00] VITALS: BP 126/46
[2020-02-05] MEDS ORDERED: LORazepam 2 MG/ML VIAL IM ONE (19:15)
[2020-02-05] MEDS ORDERED: HALOPERIDOL LACTATE 5 MG/ML VIAL IM ONE (19:15)
[2020-02-05] MEDS: ZONISAMIDE 100 MG CAPSULE PO SCH (21:00)
[2020-02-05] MEDS: SIMVASTATIN 10 MG TABLET PO SCH (21:00)
[2020-02-05] MEDS: GABAPENTIN 300 MG CAPSULE PO SCH (21:00)
[2020-02-06 08:00] VITALS: BP 111/58
[2020-02-06] MEDS: LevETIRAcetam 500 MG TABLET PO SCH ×2 (08:58→16:25)
[2020-02-06] MEDS: FOLIC ACID 1 MG TABLET PO SCH (08:59)
[2020-02-06] MEDS: THIAMINE 100 MG TABLET PO SCH (08:59)
[2020-02-06 16:00] VITALS: BP 125/54
[2020-02-06] MEDS: ONDANSETRON HCL 4 MG TABLET PO PRN (18:53)
[2020-02-06] MEDS: GABAPENTIN 300 MG CAPSULE PO SCH (20:52)
[2020-02-06] MEDS: ZONISAMIDE 100 MG CAPSULE PO SCH (20:53)
[2020-02-06] MEDS: SIMVASTATIN 10 MG TABLET PO SCH (20:53)
[2020-02-07 08:41] VITALS: BP 112/42
[2020-02-07] MEDS: LevETIRAcetam 500 MG TABLET PO SCH ×2 (08:43→16:04)
[2020-02-07] MEDS: FOLIC ACID 1 MG TABLET PO SCH (08:43)
[2020-02-07] MEDS: THIAMINE 100 MG TABLET PO SCH (08:43)
[2020-02-07 16:37] VITALS: BP 106/50
[2020-02-07] MEDS: ZONISAMIDE 100 MG CAPSULE PO SCH ×2 (20:34→21:00)
[2020-02-07] MEDS: SIMVASTATIN 10 MG TABLET PO SCH ×2 (20:34→21:00)
[2020-02-07] MEDS: GABAPENTIN 300 MG CAPSULE PO SCH ×2 (20:34→21:00)
[2020-02-08] MEDS: FOLIC ACID 1 MG TABLET PO SCH (08:52)
[2020-02-08] MEDS: THIAMINE 100 MG TABLET PO SCH (08:52)
[2020-02-08] MEDS: LevETIRAcetam 500 MG TABLET PO SCH ×2 (08:53→17:14)
[2020-02-08 13:22] VITALS: BP 106/53
[2020-02-08 16:58] VITALS: BP 98/48
[2020-02-08] MEDS: SIMVASTATIN 10 MG TABLET PO SCH (20:40)
[2020-02-08] MEDS: GABAPENTIN 300 MG CAPSULE PO SCH (20:40)
[2020-02-08] MEDS: ZONISAMIDE 100 MG CAPSULE PO SCH (20:40)
[2020-02-09 05:46] VITALS: BP 108/50
[2020-02-09 08:00] VITALS: BP 114/54
[2020-02-09] MEDS: LevETIRAcetam 500 MG TABLET PO SCH ×2 (08:11→16:37)
[2020-02-09] MEDS: THIAMINE 100 MG TABLET PO SCH (08:12)
[2020-02-09] MEDS: FOLIC ACID 1 MG TABLET PO SCH (08:12)
[2020-02-09 16:15] VITALS: BP 97/50
[2020-02-09] MEDS: ZONISAMIDE 100 MG CAPSULE PO SCH (20:18)
[2020-02-09] MEDS: GABAPENTIN 300 MG CAPSULE PO SCH (20:18)
[2020-02-09] MEDS: SIMVASTATIN 10 MG TABLET PO SCH (20:19)
[2020-02-10] MEDS: LevETIRAcetam 500 MG TABLET PO SCH ×2 (08:36→15:59)
[2020-02-10] MEDS: FOLIC ACID 1 MG TABLET PO SCH (08:36)
[2020-02-10] MEDS: THIAMINE 100 MG TABLET PO SCH (08:36)
[2020-02-10 09:22] VITALS: BP 99/54
[2020-02-10 16:37] VITALS: BP 103/57
[2020-02-10] MEDS: SIMVASTATIN 10 MG TABLET PO SCH (20:30)
[2020-02-10] MEDS: ZONISAMIDE 100 MG CAPSULE PO SCH (20:30)
[2020-02-10] MEDS: GABAPENTIN 300 MG CAPSULE PO SCH (20:30)
[2020-02-11] MEDS: THIAMINE 100 MG TABLET PO SCH (09:18)
[2020-02-11] MEDS: LevETIRAcetam 500 MG TABLET PO SCH ×2 (09:18→17:23)
[2020-02-11] MEDS: FOLIC ACID 1 MG TABLET PO SCH (09:18)
[2020-02-11 12:08] VITALS: BP 103/57
[2020-02-11 16:15] VITALS: BP 89/48
[2020-02-11] MEDS: SIMVASTATIN 10 MG TABLET PO SCH (20:06)
[2020-02-11] MEDS: GABAPENTIN 300 MG CAPSULE PO SCH (20:06)
[2020-02-11] MEDS: ZONISAMIDE 100 MG CAPSULE PO SCH (20:06)
[2020-02-12 08:00] VITALS: BP 106/52
[2020-02-12] MEDS: LevETIRAcetam 500 MG TABLET PO SCH ×2 (08:56→16:59)
[2020-02-12] MEDS: FOLIC ACID 1 MG TABLET PO SCH (08:56)
[2020-02-12] MEDS: THIAMINE 100 MG TABLET PO SCH (08:56)
[2020-02-12 17:13] VITALS: BP 111/66
[2020-02-12] MEDS: ZONISAMIDE 100 MG CAPSULE PO SCH (20:39)
[2020-02-12] MEDS: GABAPENTIN 300 MG CAPSULE PO SCH (20:39)
[2020-02-12] MEDS: SIMVASTATIN 10 MG TABLET PO SCH (20:39)
[2020-02-13] MEDS: THIAMINE 100 MG TABLET PO SCH (09:24)
[2020-02-13] MEDS: FOLIC ACID 1 MG TABLET PO SCH (09:24)
[2020-02-13] MEDS: LevETIRAcetam 500 MG TABLET PO SCH ×2 (09:24→16:10)
[2020-02-13 10:09] VITALS: BP 126/67
[2020-02-13 16:10] VITALS: BP 115/87
[2020-02-13] MEDS: ZONISAMIDE 100 MG CAPSULE PO SCH (20:19)
[2020-02-13] MEDS: GABAPENTIN 300 MG CAPSULE PO SCH (20:19)
[2020-02-13] MEDS: SIMVASTATIN 10 MG TABLET PO SCH (20:19)
[2020-02-14] MEDS: FOLIC ACID 1 MG TABLET PO SCH (09:19)
[2020-02-14] MEDS: THIAMINE 100 MG TABLET PO SCH (09:19)
[2020-02-14] MEDS: LevETIRAcetam 500 MG TABLET PO SCH ×2 (09:19→16:34)
[2020-02-14 10:05] VITALS: BP 104/46
[2020-02-14 17:13] VITALS: BP 102/74
[2020-02-14] MEDS: SIMVASTATIN 10 MG TABLET PO SCH (20:28)
[2020-02-14] MEDS: ZONISAMIDE 100 MG CAPSULE PO SCH (20:28)
[2020-02-14] MEDS: GABAPENTIN 300 MG CAPSULE PO SCH (20:28)
[2020-02-15] MEDS: LevETIRAcetam 500 MG TABLET PO SCH ×2 (09:00→16:27)
[2020-02-15] MEDS: THIAMINE 100 MG TABLET PO SCH (09:00)
[2020-02-15] MEDS: FOLIC ACID 1 MG TABLET PO SCH (09:00)
[2020-02-15 09:10] VITALS: BP 111/57
[2020-02-15 15:36] LABS: COVID AG,FIA SOURCE NASOPHARYNGEAL
[2020-02-15] MEDS: GABAPENTIN 300 MG CAPSULE PO SCH (20:15)
[2020-02-15] MEDS: SIMVASTATIN 10 MG TABLET PO SCH (20:15)
[2020-02-15] MEDS: ZONISAMIDE 100 MG CAPSULE PO SCH (20:15)
[2020-02-16 09:00] VITALS: BP 130/73
[2020-02-16] MEDS: FOLIC ACID 1 MG TABLET PO SCH (09:37)
[2020-02-16] MEDS: LevETIRAcetam 500 MG TABLET PO SCH ×2 (09:37→16:28)
[2020-02-16] MEDS: THIAMINE 100 MG TABLET PO SCH (09:38)
[2020-02-16] MEDS: ONDANSETRON HCL 4 MG TABLET PO PRN (09:40)
[2020-02-16 16:51] VITALS: BP 116/49
[2020-02-16] MEDS: ZONISAMIDE 100 MG CAPSULE PO SCH (20:22)
[2020-02-16] MEDS: SIMVASTATIN 10 MG TABLET PO SCH (20:22)
[2020-02-16] MEDS: GABAPENTIN 300 MG CAPSULE PO SCH (20:22)
[2020-02-17] MEDS: THIAMINE 100 MG TABLET PO SCH ×2 (09:00→10:41)
[2020-02-17] MEDS: LevETIRAcetam 500 MG TABLET PO SCH ×2 (09:00→10:41)
[2020-02-17] MEDS: FOLIC ACID 1 MG TABLET PO SCH ×2 (09:00→10:41)
[2020-02-17 09:43] VITALS: BP 102/52
[2020-02-17] MEDS ORDERED: ZONI100C31 PO (13:44)
[2020-02-17] MEDS ORDERED: THIA100T80 PO (13:44)
[2020-02-17] MEDS ORDERED: LEVE500T53 PO (13:44)
[2020-02-17] MEDS ORDERED: SIMV-259 PO (13:44)
[2020-02-17] MEDS ORDERED: FOLI-130 PO (13:44)
[2020-02-17] MEDS ORDERED: GABA-1181 PO (13:44)
== END 2020-02-17 15:15 | disposition home or self-care (01) | DRG 885 ==
LOC: EMS 13:54 → B2X 17:53 → UNDOADMIN 22:26 → B2X 22:26 → 3EX 01-21 15:01
PROVIDERS: ADMIT Psychiatry & Neurology Psychiatry; ATTEND Psychiatry & Neurology Psychiatry
DX: F25.9 Schizoaffective disorder, unspecified (principal); G93.40 Encephalopathy, unspecified; G40.909 Epilepsy, unspecified, not intractable, without status epilepticus; E78.5 Hyperlipidemia, unspecified; I95.9 Hypotension, unspecified; Z88.8 Allergy status to other drugs, medicaments and biological substances; Z87.820 Personal history of traumatic brain injury; R26.89 Other abnormalities of gait and mobility; F17.210 Nicotine dependence, cigarettes, uncomplicated; R42 Dizziness and giddiness; Z72.89 Other problems related to lifestyle; Z20.828 Contact with and (suspected) exposure to other viral communicable diseases; Z28.21 Immunization not carried out because of patient refusal
CPT/HCPCS: 70450; 84439; 84443; 87081; 87086; 87426; 97162; G0378; G0480; J1630; J2060; Q0162